=== PATIENT | female | born 1985 | race Hispanic/Latino ===

== ENCOUNTER 2017-02-19 01:33 | Inpatient (IN) | payer OTHER ==
[~2017-02-19 01:33] MED LIST: LACTATED RINGERS 0 ML ONE; PITOCin/NS 20 UNIT/1000ML DRIP 0 MILLIUNITS/0 ML BAG IV ONE
[2017-02-19] MEDS ORDERED: PITOCin/NS 20 UNIT/1000ML DRIP 20,000 MILLIUNITS/1,000 ML BAG IV ONE (01:42)
[2017-02-19] MEDS ORDERED: DULCOLAX PR PRN (02:00)
[2017-02-19] MEDS ORDERED: MILK OF MAGNESIA PO PRN (02:00)
[2017-02-19] MEDS ORDERED: BENADRYL PO PRN (02:00)
[2017-02-19] MEDS ORDERED: ZOFRAN IV PRN (02:00)
[2017-02-19] MEDS ORDERED: SODIUM CHLORIDE FLUSH SYRINGE 10 ML IV NR (02:00)
[2017-02-19] MEDS ORDERED: LANSINOH TP PRN (02:00)
[2017-02-19] MEDS ORDERED: PITOCin/NS 20 UNIT/1000ML DRIP 20 UNITS/1,000 ML BAG IV SCH (02:00)
[2017-02-19] MEDS ORDERED: DERMOPLAST TP PRN (02:00)
[2017-02-19] MEDS ORDERED: PHENERGAN PO PRN (02:00)
[2017-02-19] MEDS ORDERED: TYLENOL PO PRN (02:00)
[2017-02-19] MEDS ORDERED: TUCKS PAD TP PRN (02:00)
--- NOTE | 2017-02-19 02:06 | History and Physical Report ---
History of Present Illness Date of examination: 02/19/17 (active labor) Date of admission: 02/19/17 01:39 Chief complaint: patient arrived in active labor @ 39+ weeks, reports urge to push with ctx. History of present illness: EDC Confirmation: 02/21/2017 Past History : 2 Term Births: 1 Living Children: 1 Para: 1 Mult. Births: 0 Prev : 0 Prev. attempt? 0 Aborta: 0 Elect. Ab: 0 Spont. Ab: 0 Ectopics: 0 # 1 Delivery date: 2014 Weeks Gestation: 39 labor: no Delivery type: Delivery location: [facility] Infant Sex: Male Comments: IOL for pre-e Past Medical History: Reviewed history from 03/17/2009 and no changes required: seasonal allergies G E R D Past Surgical History: Reviewed history from 05/08/2010 and no changes required: hand surgery Past Medical History Abnormal PAP: positive, unsure of when or type, needed repeat pap in 6 months MICHELLE Exposure: negative Infertility: negative Uterine Anomaly: negative Uterine Surgery (not C/S): negative Other Gynecologic Problems: negative Social Hx: Patient is single Infection History Hx of STD: none HIV Risk Eval: no Hepatitis B Risk Eval: low risk Personal hx. of genital herpes: no Partner hx. of genital herpes: no Rash, Viral, or Febrile illness since last LMP? no Varicella/Chicken Pox Status: Previous Disease TB Risk: no Genetic History Congenital Heart Defect: Mom: no Dad: no Juan David Disease: Mom: no Dad: no Thalassemia Mom: no Dad: no Neural Tube Defect Mom: no Dad: no Down's Syndrome Mom: no Dad: no Kurt-Sachs Mom: no Dad: no Sickle Cell Disease/Trait Mom: no Dad: no Hemophilia Mom: no Dad: no Muscular Dystrophy Mom: no Dad: no Cystic Fibrosis Mom: no Dad: no [place] Chorea Mom: no Dad: no Mental Retardation Mom: no Dad: no Fragile X Mom: no Dad: no Other Genetic/Chromosomal Disorder Mom: no Dad: no Child w/other defect Mom: no Dad: no Enviromental Exposures Xray Exposure: no Medication, drug, or alcohol use since LMP: no Chemical/Other Exposure: no Exposure to Cat Liter: no Hx of Parvovirus (Fifth Disease): no Occupational Exposure to Children: none Current Allergies (reviewed today): No known allergies Past History Past Medical History: no pertinent history Past Surgical History: no surgical history Social history: - Obstetrical History Expected Date of Delivery: 02/21/17 Actual Gestation: 39 Week(s) 5 Day(s) : 2 Para: 1 Hx # Term Pregnancies: 1 Number of Pregnancies: 0 Spontaneous Abortions: 0 Induced : 0 Number of Living Children: 1 Medications and Allergies Allergies Allergy/AdvReac Type Severity Reaction Status Date / Time peanut Allergy Unknown Verified 09/21/15 12:14 chocolate Allergy Unknown Uncoded 09/21/15 12:15 Home Medications Medication Instructions Recorded Confirmed Last Taken Type Acetaminophen/Codeine [Tylenol #3] 1 tab PO Q4HR PRN #30 tablet 09/23/15 Unknown Rx Fiber 1 tab BID 09/23/15 09/23/15 09/21/15 History Ibuprofen [Motrin 600 MG tab] 600 mg PO Q6H PRN #30 tablet 09/23/15 Unknown Rx Labetalol [Normodyne TAB] 100 mg PO BID #60 tablet 09/23/15 Unknown Rx Vit-Fe Fumar-FA [ 1 tab PO QDAY 09/23/15 09/23/15 09/21/15 History Vitamin] Review of Systems All systems: negative - Vital Signs Vital signs: Vital Signs Pulse Pulse Ox 86 99 02/19/17 01:39 02/19/17 01:39 Temp Pulse Resp BP Pulse Ox 96 H 130/80 99 02/19/17 01:50 02/19/17 01:50 02/19/17 01:39 - Physical Exam Breasts: Positive: normal Cardiovascular: Regular rate Lungs: Positive: Clear to auscultation, Normal air movement Abdomen: Positive: normal appearance, soft Genitourinary (Female): Positive: normal external genitalia, normal perenium Vulva: both: normal Vagina: Positive: normal moisture Uterus: Positive: normal size, normal contour Anus/Rectum: Positive: normal perianal skin Extremities: Positive: normal Deep Tendon Reflex Grade: Normal +2 - Obstetrical Cervical Dilatation: 10 Cervical Effacement Percentage: 100 station: +3 Uterine Contraction Pattern: Regular Uterine Tone Measurement Phase: Contraction Uterine Contraction Intensity: Strong/Firm Results All other labs normal. Laboratory Data-Patient Name: DAMON ANTONIO Test Date Result Blood Type 08/19/2016 A Rh 08/19/2016 Positive Antibody Screen negative Rubella 08/19/2016 immune Serology (RPR) 01/18/2017 non-reactive HBsAg 08/19/2016 Negative Hemoglobin 11/02/2016 12.0 Hematocrit 11/02/2016 34.7 Platelets 08/19/2016 245 [id number] Chlamydia DNA 01/18/2017 Negative GC DNA/Culture 01/18/2017 Urine Culture 10/05/2016 Final report Group B Strep cult negative PAP 07/21/2016 Normal, Satisfactory, No endocervical cells HIV 01/18/2017 negative AFP/Quad Screen 08/19/2016 Glucola Test 3hr GTT (Fasting) 12/09/2016 81 1 hr 12/09/2016 143 2 hr 12/09/2016 127 3 hr 12/09/2016 126 OPTIONAL LABS-Patient Name:DAOMN ANTONIO Test Date Result Varicella Ab Sickle Cell 08/19/2016 Negative PPD Fibronectin Cystic Fibrosis Parvovirus TSH Free T4 Hepatitis C 05/08/2010 NON-REACTIVE ALT AST Uric Acid Creatinine 24 hr Urine Protein VICKIE Assessment and Plan Patient arrived in active labor and del within approx 10 minutes of arrival. SROM clear fluid. orders in EMR. - Patient Problems (1) (normal spontaneous vaginal delivery) Current Visit: Yes Status: Acute (2) Active labor at term Current Visit: Yes Status: Acute
--- NOTE | 2017-02-19 02:10 | Procedure Note ---
OB Delivery Note - Delivery Date of Delivery: 02/19/17 ( male) Hangar Attendant: ELOY FIORE Estimated blood loss: 200cc - Vaginal Delivery presentation: vertex Delivery position: OA Intrapartum events: precipitous labor- <3hr Delivery induction: none Delivery monitor: none Route of delivery: Delivery placenta: spontaneous Delivery cord: 3 umbilical vessels Episiotomy: none Delivery laceration: none Anesthesia: none Delivery comments: Male del ODALYS over intact perineum. placed skin to skin on mother's abd, 3 vessel cord clamped and cut. Placenta del intact and complete. Pit to IVF. no laceration to repair. Mother and continuing skin to skin for first full hour. EBL 200, apgars 8/9. - Infant A at 1 minute: 8 at 5 minutes: 9 Infant Gender: Male
[2017-02-19 02:54] LABS: Hematocrit 40.6 % (30.3-42.9); Hemoglobin 13.7 gm/dl (10.1-14.3); Mean Corpuscular HGB Conc 34 % (30-34); Mean Corpuscular Hemoglobin 33 pg (28-32); Mean Corpuscular Volume 99 fl (79-97); Platelet Count 213 K/mm3 (140-440); Red Cell Distribution Width 13.2 % (13.2-15.2); White Blood Count 12.7 K/mm3 (4.5-11.0)
[2017-02-19] MEDS: NORCO 5/325 PO PRN ×2 (03:22→08:00)
[2017-02-19] MEDS: MOTRIN PO SCH ×3 (05:31→17:12)
[2017-02-19] MEDS: PRENATAL VITAMIN PO SCH (10:15)
--- NOTE | 2017-02-19 11:30 | Event Note ---
Date: 02/19/17 Pt doing well. PPD #0 s/p . Con't routine pp care.
[2017-02-19 15:01] LABS: Hematocrit 35.3 % (30.3-42.9); Hemoglobin 12.1 gm/dl (10.1-14.3)
[2017-02-20] MEDS: MOTRIN PO SCH ×3 (00:18→13:21)
[2017-02-20] MEDS ORDERED: BOOSTRIX IM ONE (06:00)
--- NOTE | 2017-02-20 10:26 | Discharge Summary ---
Providers - Providers Date of Admission: 02/19/17 01:39 Date of discharge: 02/20/17 Attending physician: KAYCEE JACK 02/19/17 02:00 Consult to Commissions Analyst [CONS] Routine Reason For Exam: assistance with , SNS Primary care physician: KAYCEE JACK Hospitalization Reason for admission: active labor Delivery: Episiotomy: none Laceration: other (see delivery note) Other procedures: none complications: none baby: male Hospital course: Pt s/p routine vaginal delivery. PP course has not been complicated. She desires d/c home today PPD#1. Condition at discharge: Good Disposition: DISCHARGED TO HOME OR SELFCARE - Discharge Diagnoses (1) (normal spontaneous vaginal delivery) Status: Acute Plan - Discharge Medications Prescriptions: Ibuprofen [Motrin 800 MG tab] 800 mg PO Q8HR PRN #30 tablet PRN Reason: Pain Lidocain2.5%/Prilocai2.5% [Emla] 5 gm TP ONCE PRN #1 tube PRN Reason: Pain - Provider Discharge Summary Additional instructions: [] Smoking cessation referral if applicable(refer to patient education folder for contact #) [] Refer to [facility]'s [facility] Booklet Call your doctor immediately for: * Fever > 100.5 * Heavy vaginal bleeding ( >1 pad per hour) * Severe persistent headache * Shortness of breath * Reddened, hot, painful area to leg or breast * Drainage or odor from incision. * Keep incision clean and dry at all times and follow doctor's instructions regarding bathing/showering CALL THE OFFICE TO SCHEDULE CIRCUMCISION AND BRING MEDS TO OFFICE FOR THE PROCEDURE - Follow up plan Follow up: KAYCEE JACK MD [Primary Care Provider] - 7 Days
--- NOTE | 2017-02-20 10:26 | Progress Note ---
Assessment and Plan - Patient Problems (1) (normal spontaneous vaginal delivery) Current Visit: Yes Status: Acute Plan to address problem: -routine pp care -d/c home today Subjective - Subjective Date of service: 02/20/17 Principal diagnosis: PPD #1 s/p Interval history: Pt doing well and desired d/c home today. Patient reports: appetite normal, voiding normally, pain well controlled, no dizzy ambulation [place]: doing well Objective - Vital Signs Latest vital signs: Vital Signs Temp Pulse Resp BP 02/20/17 07:33 98.3 F 68 18 113/67 02/20/17 06:21 18 02/20/17 00:18 18 02/20/17 00:00 97.8 F 73 20 118/74 02/19/17 15:45 98 F 72 20 120/78 02/19/17 12:00 98.2 F 75 20 113/71 Intake and Output 02/19/17 02/20/17 02/20/17 22:59 06:59 14:59 Intake Total 600 480 Output Total 900 Balance -300 480 Intake: Oral 600 480 Output: Urine 900 Void 900 Other: Total, Intake Amount 240 240 Total, Output Amount 900 # Voids Void 1 1 - Exam Breasts: Present: normal Cardiovascular: Present: Normal S1, Normal S2 Lungs: Present: Clear to auscultation, Normal air movement Abdomen: Present: normal appearance, soft, normal bowel sounds. Absent: distention, tenderness, guarding Uterus: Present: normal, firm, fundal height below umbilicus. Absent: bogginess , tenderness Extremities: Present: normal. Absent: tenderness, edema Deep Tendon Reflex Grade: Normal +2
[2017-02-20] MEDS: PRENATAL VITAMIN PO SCH (10:42)
[2017-02-20 15:10] VITALS: BP 123/87
== END 2017-02-20 16:40 | disposition home or self-care (01) | DRG 775 ==
LOC: TRG 01:33 → LD 01:39 → OB 06:02
PROVIDERS: ADMIT Obstetrics & Gynecology; ATTEND Obstetrics & Gynecology
PROC: 10E0XZZ Delivery of Products of Conception, External Approach (ICD-10-PCS; principal; 2017-02-19)
DX: O62.3 Precipitate labor (principal); O42.92 Full-term premature rupture of membranes, unspecified as to length of time between rupture and onset of labor; Z3A.39 39 weeks gestation of pregnancy; Z37.0 Single live birth
CPT/HCPCS: 36415; 85014; 85018; 85027; 86850; 86900; 86901; J2590; J7120

== ENCOUNTER 2018-12-08 02:54 | Inpatient (IN) | payer OTHER ==
[2018-12-08] MEDS ORDERED: PHENERGAN PO PRN ×2 (04:26→06:20)
[2018-12-08] MEDS ORDERED: BRETHINE IVP PRN (04:26)
[2018-12-08] MEDS ORDERED: BRETHINE SUB-Q PRN (04:26)
[2018-12-08] MEDS ORDERED: XYLOCAINE 2% INFILTRATI ONE (04:26)
[2018-12-08] MEDS ORDERED: STADOL IV PRN (04:26)
--- NOTE | 2018-12-08 04:26 | History and Physical Report ---
History of Present Illness Date of examination: 12/08/18 History of present illness: Patient presented to labor and delivery complaining of regular contractions initial exam 4 cm after walking patient changed to 8 cm. EDC Calculations LMP: 02/21/2017 EDC Confirmation: 12/12/2018 Past History : 3 Term Births: 2 Living Children: 2 Para: 2 Mult. Births: 0 Prev : 0 Prev. attempt? 0 Aborta: 0 Elect. Ab: 0 Spont. Ab: 0 Ectopics: 0 # 1 Delivery date: 2014 Weeks Gestation: 39 labor: no Delivery type: Delivery location: [facility] Infant Sex: Male Comments: IOL for pre-e # 2 Delivery date: 02/19/2017 Weeks Gestation: 39+5 Delivery type: Vaginal Hours of labor: 2 Anesthesia type: none Delivery location: [facility] Sex: female Comments: none Past Medical History: seasonal allergies G E R D Past Surgical History: hand surgery Past Medical History Abnormal PAP: negative MICHELLE Exposure: negative Infertility: negative Uterine Anomaly: negative Uterine Surgery (not C/S): negative Other Gynecologic Problems: negative Social Hx: Patient is single Infection History Hx of STD: none HIV Risk Eval: low risk Hepatitis B Risk Eval: low risk Personal hx. of genital herpes: no Partner hx. of genital herpes: no Rash, Viral, or Febrile illness since last LMP? no Varicella/Chicken Pox Status: Previous Disease Genetic History Congenital Heart Defect: Mom: no Dad: no Juan David Disease: Mom: no Dad: no Thalassemia Mom: no Dad: no Neural Tube Defect Mom: no Dad: no Down's Syndrome Mom: no Dad: no Kurt-Sachs Mom: no Dad: no Sickle Cell Disease/Trait Mom: no Dad: no Hemophilia Mom: no Dad: no Muscular Dystrophy Mom: no Dad: no Cystic Fibrosis Mom: no Dad: no [place] Chorea Mom: no Dad: no Mental Retardation Mom: no Dad: no Fragile X Mom: no Dad: no Other Genetic/Chromosomal Disorder Mom: no Dad: no Child w/other defect Mom: no Dad: no Enviromental Exposures Xray Exposure: no Medication, drug, or alcohol use since LMP: no Chemical/Other Exposure: no Exposure to Cat Liter: no Hx of Parvovirus (Fifth Disease): no Occupational Exposure to Children: none Active Medications (reviewed today): None Current Allergies: No known allergies Past History Past Medical History: other (see HPI) Past Surgical History: other (see 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) 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) Family/Genetic History: other (see HPI) Social history: other (see HPI) - Obstetrical History Expected Date of Delivery: 12/12/18 Actual Gestation: 39 Week(s) 3 Day(s) : 3 Para: 2 Hx # Term Pregnancies: 2 Number of Pregnancies: 0 Spontaneous Abortions: 0 Induced : 0 Number of Living Children: 2 Medications and Allergies Allergies Allergy/AdvReac Type Severity Reaction Status Date / Time peanut Allergy Unknown Verified 12/08/18 03:23 chocolate Allergy Unknown Uncoded 12/08/18 03:23 Home Medications Medication Instructions Recorded Confirmed Last Taken Type Vit-Fe Fumar-FA [ 1 tab PO QDAY 09/23/15 12/08/18 12/06/18 History Vitamin] - Vital Signs Vital signs: Vital Signs Pulse BP 72 128/80 12/08/18 03:14 12/08/18 03:14 Temp Pulse Resp BP Pulse Ox 98.4 F 72 18 128/80 12/08/18 03:19 12/08/18 03:14 12/08/18 03:19 12/08/18 03:14 - Physical Exam Breasts: Positive: deferred Cardiovascular: Regular rate Lungs: Positive: Normal air movement Abdomen: Positive: normal appearance Genitourinary (Female): Positive: normal external genitalia Vagina: Positive: normal moisture Uterus: Positive: enlarged Anus/Rectum: Positive: normal perianal skin - Obstetrical FHR: category 1 Results Result Diagrams: 12/08/18 04:30 All other labs normal. Assessment and Plan - Patient Problems (1) Active labor at term Current Visit: No Status: Acute Plan to address problem: Admit patient to follow labor and delivery protocol
[2018-12-08] MEDS: PITOCin/NS 20 UNIT/1000ML DRIP 20 UNITS/1,000 ML BAG IV SCH ×2 (04:50→05:20)
[2018-12-08] MEDS ORDERED: LACTATED RINGERS 1,000 ML IV SCH (05:00)
[2018-12-08] MEDS ORDERED: TYLENOL PO PRN (06:20)
[2018-12-08] MEDS ORDERED: LANSINOH TP PRN (06:20)
[2018-12-08] MEDS ORDERED: SODIUM CHLORIDE FLUSH SYRINGE 10 ML IV NR (06:20)
[2018-12-08] MEDS ORDERED: MILK OF MAGNESIA PO PRN (06:20)
[2018-12-08] MEDS ORDERED: BENADRYL PO PRN (06:20)
[2018-12-08] MEDS ORDERED: TUCKS PAD TP PRN (06:20)
[2018-12-08] MEDS ORDERED: NORCO 5/325 PO PRN (06:20)
[2018-12-08 06:26] LABS: Hematocrit 38.8 % (30.3-42.9); Hemoglobin 13.5 gm/dl (10.1-14.3); Mean Corpuscular HGB Conc 35 % (30-34); Mean Corpuscular Volume 101 fl (79-97); Platelet Count 172 K/mm3 (140-440); Red Blood Count 3.84 M/mm3 (3.65-5.03); Red Cell Distribution Width 13.5 % (13.2-15.2)
--- NOTE | 2018-12-08 06:38 | Procedure Note ---
OB Delivery Note - Delivery Date of Delivery: 12/08/18 Surgeon: KAYCEE JACK Estimated blood loss: 300cc - Vaginal Delivery presentation: vertex Delivery position: OA Intrapartum events: meconium, precipitous labor- <3hr Delivery induction: none Delivery augmentation: rupture of membranes Delivery monitor: external FHT, external uterine Route of delivery: Delivery placenta: spontaneous Episiotomy: none Delivery laceration: none Anesthesia: none Delivery comments: NICU present for delivery
[2018-12-08] MEDS ORDERED: COLACE PO SCH (10:00)
[2018-12-08] MEDS: PRENATAL VITAMIN PO SCH (10:01)
[2018-12-08] MEDS: IBUPROFEN PO SCH ×2 (12:36→18:40)
[2018-12-08 17:40] LABS: Hematocrit 38.4 % (30.3-42.9); Hemoglobin 13.1 gm/dl (10.1-14.3)
[2018-12-09] MEDS: IBUPROFEN PO SCH (02:07)
[2018-12-09] MEDS: PRENATAL VITAMIN PO SCH (08:24)
--- NOTE | 2018-12-09 12:31 | Discharge Summary ---
Providers - Providers Date of Admission: 12/08/18 04:30 Date of discharge: 12/09/18 Attending physician: KAYCEE JACK 12/08/18 06:20 Consult to Car Examiner [CONS] Routine Reason For Exam: assistance with , SNS Primary care physician: KAYCEE JACK Hospitalization Reason for admission: active labor Delivery: Episiotomy: none Laceration: none Other procedures: none complications: none Discharge diagnosis: IUP at term delivered baby: female Hospital course: Patient was admitted underwent a normal spontaneous vaginal delivery. Her course was benign. She was afebrile throughout her stay. Her day 1 hematocrit was 38%. Patient is breast-feeding and undecided on control this time. Condition at discharge: Good Disposition: DC-01 TO HOME OR SELFCARE - Discharge Diagnoses (1) Active labor at term Status: Acute Plan - Discharge Medications Prescriptions: Ibuprofen [Motrin 800 MG tab] 800 mg PO Q6H PRN #30 tablet PRN Reason: Pain - Provider Discharge Summary Activity: routine, no sex for 6 weeks, no strenuous exercise Diet: routine Instructions: routine Additional instructions: [] Smoking cessation referral if applicable(refer to patient education folder for contact #) [] Refer to [facility]'s [facility] Booklet Call your doctor immediately for: * Fever > 100.5 * Heavy vaginal bleeding ( >1 pad per hour) * Severe persistent headache * Shortness of breath * Reddened, hot, painful area to leg or breast * Drainage or odor from incision. *Patient follow-up in office in 4 weeks to discuss contraceptive OPTIONS - Follow up plan Follow up: KAYCEE JACK MD [Primary Care Provider] - 7 Days
[2018-12-09 18:09] VITALS: BP 128/89
== END 2018-12-09 21:50 | disposition home or self-care (01) | DRG 807 ==
LOC: TRG 02:54 → LD 04:30 → OB 06:55
PROVIDERS: ADMIT Obstetrics & Gynecology; ATTEND Obstetrics & Gynecology
PROC: 10E0XZZ Delivery of Products of Conception, External Approach (ICD-10-PCS; principal; 2018-12-08)
DX: O77.0 Labor and delivery complicated by meconium in amniotic fluid (principal); Z37.0 Single live birth; O62.3 Precipitate labor; Z3A.39 39 weeks gestation of pregnancy
CPT/HCPCS: 36415; 85014; 85018; 85027; 86850; 86900; 86901; G0378; A6250; J2590